=== PATIENT | male | born 1955 | race Caucasian/White ===

== ENCOUNTER 2020-04-14 09:18 | Day surgery (SDC) | payer MEDICARE, BC ==
[2020-04-12 11:41] VITALS: BMI 28.0
[~2020-04-14 09:18] MED LIST: LACTATED RINGERS 1,000 ML IV SCH; LIDOCAINE 1% (10MG/ML) FOR IV START INTRADERMA PRN
[2020-04-14 09:48] VITALS: RESP 18; TEMP 98.3
[2020-04-14] MEDS ORDERED: PROPOFOL 10 MG/ML 20 ML VIAL IV ONE (09:56)
[2020-04-14] MEDS ORDERED: LIDOCAINE 1% INJ 10MG/ML (20 ML MDV) ONE (09:56)
--- NOTE | 2020-04-14 10:14 | P.PCN ---
Date of Procedure: 04/14/20 Procedure(s) Performed: Brief history: Patient is a pleasant 65-year-old white male scheduled for an elective upper endoscopy as well as colonoscopy as a part of evaluation of long-standing history of GERD and screening for colon cancer. Procedure performed: Esophagogastroduodenoscopy with biopsy Colonoscopy Preoperative diagnosis: Long-standing history of GERD Screening for colon cancer Anesthesia: MAC Procedure: After informed consent was obtained from the patient was brought into the endoscopy unit and IV sedation was administered by anesthesia under continuous monitoring. Initially upper endoscopy was done. The Olympus GF 160 video endoscope was inserted inserted into the mouth and esophagus intubated without any difficulty and was gradually advanced into the stomach and duodenum and carefully examined. The bulb and second part of the duodenum appeared normal. The scope was then withdrawn into the stomach adequately insufflated with air and upon careful examination the antrum and body, cardia and fundus appeared normal. The scope was then withdrawn into the esophagus. Small hiatal hernia noted. The GE junction was located at 38 cm to the incisors. It was OH'S appearing mucosa extending 3-4 mm proximal GE junction and this was biopsied. There was no evidence of erosions or ulcerations. Rest of the esophagus appeared normal. Patient tolerated the procedure well. At this time the patient continued to remain sedation. Initial digital rectal examination was normal. Olympus CF 160 video colonoscope was then inserted into the rectum and gradually advanced to the cecum without any difficulty. Careful examination was performed as the scope was gradually being withdrawn. The prep was excellent. The cecum, ascending colon, transverse colon, descending colon, sigmoid colon and rectum appeared normal. Retroflexion was performed in the rectum and no lesions were noted. Patient tolerated the procedure well. Impression: 1. Upper endoscopy revealed short segment Oh's esophagus and small hiatal hernia. 2. Colonoscopy was within normal limits with no evidence of colitis or colorectal neoplasia Recommendations: Findings of this examination were discussed with the patient as well as his family. He was advised to follow with the biopsy results. He will continue with Prilosec 20 mg daily and follow antireflux measures. If the biopsy confirms the presence of Oh's esophagus he can have a repeat upper endoscopy to 3 years. He can have a repeat screening colonoscopy in 10 years.
[2020-04-14 10:38] VITALS: BP 123/78; PULSE 62
== END 2020-04-14 11:05 | disposition home or self-care (01) ==
LOC: ORWHC2ENDO 09:18
PROVIDERS: ATTEND Internal Medicine Gastroenterology
DX: Z12.11 Encounter for screening for malignant neoplasm of colon (principal); K21.0 Gastro-esophageal reflux disease with esophagitis; K44.9 Diaphragmatic hernia without obstruction or gangrene; K22.70 Barrett's esophagus without dysplasia; Z79.899 Other long term (current) drug therapy
CPT/HCPCS: 88305; 43239; J2001; J2704; G0121

== ENCOUNTER → 2020-05-25 | Outpatient (CLI) | payer MEDICARE, BC ==
--- NOTE | 2020-05-25 13:47 | CT ---
EXAMINATION TYPE: CT chest wo con DATE OF EXAM: 05/25/2020 COMPARISON: NONE HISTORY: Contact with and (suspected) exposure to asbestos CT DLP: 374.40 mGycm. Automated Exposure Control for Dose Reduction was Utilized. TECHNIQUE: CT scan of the thorax is performed without IV contrast. FINDINGS: LUNGS: Nonspecific subcentimeter groundglass opacity left midlung seen best coronal image 49. Early i nfiltrate would need to be considered in the appropriate clinical setting, correlate clinically. No s uspicious greater than 4 mm pulmonary nodules or masses. Mild biapical pleural/parenchymal scarring. Mild bilateral apical emphysematous change. There is no pleural effusion or pneumothorax seen bilate rally. The tracheobronchial tree is patent. MEDIASTINUM: Lack of IV contrast is noted to limit evaluation for mediastinal and especially hilar ad enopathy. There are no definitive greater than 1 cm hilar or mediastinal lymph nodes. No cardiomega ly or pericardial effusion is seen. There is hiatal hernia containing fat and tiny mesenteric vessels causing mass effect on the distal esophagus deviated to the left of midline seen best coronal image 60. OTHER: Partial visualization of low dense probable thin walled cyst left kidney medially midpole leve l axial image 67 measuring roughly 2.2 cm transversely. IMPRESSION: Mild apical emphysematous change without acute pulmonary process. No calcified pleural pl aques or suspicious solid nodules.
== END | disposition home or self-care (01) ==
LOC: RADCTMAIN 09:55
PROVIDERS: ATTEND Family Medicine
DX: J43.9 Emphysema, unspecified (principal)
CPT/HCPCS: 71250